=== PATIENT | female | born 1980 | race African-American/Black ===

== ENCOUNTER 2017-04-07 17:49 | Inpatient (IN) | payer OTHER ==
[~2017-04-07] VITALS: Ht 165.1 cm; Wt 79.1 kg
[2017-04-07 17:51] VITALS: BP 144/84; PULSE 114; RESP 21; TEMP 98.6; O2SAT 98
--- NOTE | 2017-04-07 18:12 | PD ---
Physical Exam Date Seen by Provider: Apr 07, 2017 Time Seen by Provider: 18:10 Narrative 36 yo female here for elevated BS. Has had "high" BS readings for a few days. Even using her insulin is not helping. History of Type 1 diabetes. Has been having abdominal pain. Feeling nauseous with some vomiting. Feels like she is having pancreatitis. Pain is 8/10. No blood in vomit. No chest pain. States compliance with insulin. Positive for polydipsia and polyuria. Vitals are stable. Awaiting bed placement. Data Data Last Documented VS Vital Signs Date Time Temp Pulse Resp B/P Pulse Ox O2 Delivery O2 Flow Rate FiO2 04/07/17 17:51 98.6 114 21 144/84 98 MDM Medical Record Reviewed: Yes Supervised Visit with DENZEL: Larry Gray Apr 07, 2017 18:12
[2017-04-07 18:40] VITALS: BP 155/82; PULSE 109; RESP 24; TEMP 98; O2SAT 100
--- NOTE | 2017-04-07 18:42 | PD ---
HPI Chief Complaint: Diabetic Time Seen by Provider: 18:25 Travel History International Travel<30 days: No Contact w/Intl Traveler<30days: No Traveled to known affect area: No History of Present Illness HPI 36-year-old female complains of headache, nausea vomiting, abdominal pain and urinary frequency. Patient has history diabetes on insulin. Patient states that she started having epigastric abdominal pain with radiation of back since yesterday. Patient has history of pancreatitis in the past. Patient states that headache is mild aching headache. Patient denies any visual change. Patient states that she has intermittent shortness of breath. Patient denies any coughing congestion. Patient denies any vaginal discharge or bleeding. Patient checked her blood sugar at home and was registered high. [facility] Past Medical History Diabetes: Yes Respiratory: Yes (asthma) Social History Tobacco Use: No Allergies-Medications (Allergen,Severity, Reaction): Coded Allergies: No Known Allergies (Unverified , 04/07/17) Reported Meds & Prescriptions Reported Meds & Active Scripts Active Reported Apidra Inj (Insulin Glulisine Inj) 1,000 Unit/10 Ml Vial 10 Units SQ ACHS SLIDING SCALE Novolin N Inj (Insulin Human NPH) 1,000 Unit/10 Ml Vial 15 Unit SQ DIRECTED Sliding Scale As Directed. Review of Systems General / Constitutional: No: Fever Eyes: No: Visual changes HENT: Positive: Headaches Cardiovascular: No: Chest Pain or Discomfort Respiratory: Positive: Shortness of Breath Gastrointestinal: Positive: Nausea, Vomiting, Abdominal Pain Genitourinary: Positive: Frequency, No: Dysuria Musculoskeletal: No: Pain Skin: No Rash Neurologic: No: Weakness Psychiatric: No: Depression Endocrine: No: Polydipsia Hematologic/Lymphatic: No: Easy Bruising Physical Exam Narrative GENERAL: Well-nourished, well-developed patient. SKIN: Focused skin assessment warm/dry. HEAD: Normocephalic. EYES: No scleral icterus. No injection or drainage. NECK: Supple, trachea midline. No JVD or lymphadenopathy. CARDIOVASCULAR: Regular rate and rhythm without murmurs, gallops, or rubs. RESPIRATORY: Breath sounds equal bilaterally. No accessory muscle use. GASTROINTESTINAL: Abdomen soft, nondistended. Patient has moderate tenderness on palpation epigastric area. No rebound tenderness. No mass. MUSCULOSKELETAL: No cyanosis, or edema. BACK: Nontender without obvious deformity. No CVA tenderness. Neurologic exam normal. Data Data Last Documented VS Vital Signs Date Time Temp Pulse Resp B/P Pulse Ox O2 Delivery O2 Flow Rate FiO2 04/07/17 18:40 98.0 109 24 155/82 100 Room Air Orders Urinalysis - C+S If Indicated (04/07/17 18:13) Complete Blood Count With Diff (04/07/17 18:32) Comprehensive Metabolic Panel (04/07/17 18:32) Lipase (04/07/17 18:32) Beta Hydroxybutyrate (Acetone) (04/07/17 18:32) Iv Access Insert/Monitor (04/07/17 18:32) Ecg Monitoring (04/07/17 18:32) Oximetry (04/07/17 18:32) Arterial Blood Gas (Abg) (04/07/17 ) Sodium Chlor 0.9% 1000 Ml Inj (Ns 1000 M (04/07/17 18:45) Labs Laboratory Tests Test 04/07/17 04/07/17 04/07/17 18:23 18:42 18:55 Urine Color COLORLESS Urine Turbidity CLEAR Urine pH 5.0 Urine Specific [place] 1.026 Urine Protein NEG mg/dL Urine Glucose (UA) 1000 mg/dL Urine Ketones 80 mg/dL Urine Occult Blood NEG Urine Nitrite NEG Urine Bilirubin NEG Urine Urobilinogen LESS THAN 2.0 MG/DL Urine Leukocyte Esterase NEG Urine RBC LESS THAN 1 /hpf Urine WBC LESS THAN 1 /hpf Urine Squamous Epithelial <1 /hpf Cells Microscopic Urinalysis Comment CULT NOT INDICATED Blood Gas Puncture Site RT BRACHIAL Blood Gas Patient Temperature 98.6 Blood Gas HCO3 13 mmol/L Blood Gas Base Excess -11.7 mmol/L Blood Gas Oxygen Saturation 96 % Arterial Blood pH 7.31 Arterial Blood Partial 27 mmHg Pressure CO2 Arterial Blood Partial 103 mmHG Pressure O2 Arterial Blood Oxygen Content 16.3 Vol % Arterial Blood 1.3 % Carboxyhemoglobin Arterial Blood Methemoglobin 0.6 % Blood Gas Hemoglobin 12.0 G/DL Oxygen Delivery Device ROOM AIR Blood Gas Inspired Oxygen 21 % White Blood Count 9.2 TH/MM3 Red Blood Count 4.13 MIL/MM3 Hemoglobin 12.1 GM/DL Hematocrit 38.8 % Mean Corpuscular Volume 93.9 FL Mean Corpuscular Hemoglobin 29.4 PG Mean Corpuscular Hemoglobin 31.3 % Concent Red Cell Distribution Width 14.8 % Platelet Count 287 TH/MM3 Mean Platelet Volume 10.3 FL Neutrophils (%) (Auto) 91.0 % Lymphocytes (%) (Auto) 6.7 % Monocytes (%) (Auto) 2.0 % Eosinophils (%) (Auto) 0.1 % Basophils (%) (Auto) 0.2 % Neutrophils # (Auto) 8.4 TH/MM3 Lymphocytes # (Auto) 0.6 TH/MM3 Monocytes # (Auto) 0.2 TH/MM3 Eosinophils # (Auto) 0.0 TH/MM3 Basophils # (Auto) 0.0 TH/MM3 CBC Comment DIFF FINAL Differential Comment Sodium Level 129 MEQ/L Potassium Level 4.8 MEQ/L Chloride Level 97 MEQ/L Carbon Dioxide Level 15.7 MEQ/L Anion Gap 16 MEQ/L Blood Urea Nitrogen 17 MG/DL Creatinine 1.50 MG/DL Estimat Glomerular Filtration 40 ML/MIN Rate Random Glucose 613 MG/DL Calcium Level 8.7 MG/DL Total Bilirubin 0.6 MG/DL Aspartate Amino Transf 42 U/L (AST/SGOT) Alanine Aminotransferase 21 U/L (ALT/SGPT) Alkaline Phosphatase 119 U/L Total Protein 8.5 GM/DL Albumin 3.5 GM/DL Lipase 71 U/L B-Hydroxybutyrate 2.44 MMOL/L MDM Medical Decision Making Medical Screen Exam Complete: Yes Emergency Medical Condition: Yes Differential Diagnosis Differential diagnosis including DKA, pancreatitis, a enteritis, dehydration, hyperglycemia. Narrative Course 36-year-old female with headache, shortness of breath, abdominal pain, nausea vomiting. History of pancreatitis. History of diabetes. Blood sugar reading high at home. Normal saline solution 1 L IV bolus. Ismael Ross MD Apr 07, 2017 18:42
[2017-04-07] MEDS ORDERED: SODIUM CHLOR 0.9% 1000 ML INJ 1,000 ML IV ONE ×2 (18:45→20:15)
[2017-04-07 18:47] LABS: BLOOD, URINE NEG (NEG); GLUCOSE,URINE 1000 mg/dL (NEG); KETONE, URINE 80 mg/dL (NEG); NITRITE,URINE NEG (NEG); SQUAMOUS EPITHELIAL CELL URINE <1 /hpf (0-5); URINE COLOR COLORLESS (YELLW/STRAW)
[2017-04-07] MEDS ORDERED: NOVONP2 SQ (18:47)
[2017-04-07] MEDS ORDERED: APIDINJ SQ (18:47)
[2017-04-07 18:49] LABS: COMMENT (UR) CULT NOT INDICATED; CULTURE IF INDICATED CULT NOT INDICATED
[2017-04-07 18:52] LABS: BLOOD GAS BASE EXCESS -11.7 mmol/L (-2-2); BLOOD GAS CARBOXYHEMOGLOBIN 1.3 % (0-4); BLOOD GAS HCO3 13 mmol/L (22-26); BLOOD GAS METHEMOGLOBIN 0.6 % (0-2); BLOOD GAS O2 HGB SATURATION 96 % (90-100); BLOOD GAS OXYGEN CONTENT 16.3 Vol % (12.0-20.0); BLOOD GAS PCO2 27 mmHg (38-42); BLOOD GAS PO2 103 mmHG (61-120); TEMP CORR TO 98.6
[2017-04-07 18:53] LABS: CRITICAL VALUE YES; DRAW SITE RT BRACHIAL; FIO2 21 %; NUMBER OF ARTERIAL PUNCTURES 1; OXYGEN DEVICE ROOM AIR; STAT YES
[2017-04-07 19:10] LABS: AUTOMATED NEUTROPHIL # 8.4 TH/MM3 (1.8-7.7); BASOPHIL % 0.2 % (0.0-2.0); EOSINOPHIL % 0.1 % (0.0-4.0); HEMATOCRIT 38.8 % (35.0-46.0); HEMO FLAGS DIFF FINAL; LYMPH % 6.7 % (9.0-44.0); LYMPHOCYTE # 0.6 TH/MM3 (1.0-4.8); MEAN CELL VOLUME 93.9 FL (80.0-100.0); MEAN CORPUSCULAR HEMOGLOBIN 29.4 PG (27.0-34.0); MEAN CORPUSCULAR HGB CONC 31.3 % (32.0-36.0); PLATELET COUNT 287 TH/MM3 (150-450); RED BLOOD COUNT 4.13 MIL/MM3 (4.00-5.30); RED CELL DISTRIBUTION WIDTH 14.8 % (11.6-17.2); WHITE BLOOD COUNT 9.2 TH/MM3 (4.0-11.0)
--- NOTE | 2017-04-07 19:10 | PD ---
Physical Exam Narrative General: The patient is a well-developed well-nourished female in no acute distress. Head and Neck exam: Head is normocephalic atraumatic. Eyes: EOMI, pupils are equal round and reactive to light. Nose: Midline septum with pink mucous membranes Mouth: Dentition unremarkable. Moist mucus membranes. Posterior oropharynx is not erythematous. No tonsillar hypertrophy. Uvula midline. Airway patent. Neck: No palpable lymphadenopathy. No nuchal rigidity. No thyromegaly. Cardiovascular: Sinus tachycardia in the 1 teens without murmurs, gallops, or rubs. No pulse deficit to the extremities and simultaneous auscultation and palpation of her radial artery. Lungs: Clear to auscultation bilaterally. No wheezes, rhonchi, or rales. Abdomen: Soft, with tenderness on palpation of the midepigastric area and left upper quadrant of the abdomen, no other tenderness on palpation of the other quadrants. No guarding, rebound, or rigidity. Normal bowel sounds are audible. No tenderness on palpation of McBurney's point. Negative Inglis sign. Extremities: No clubbing, cyanosis, or edema. 2+ pulses in all 4 extremities. No calf tenderness on palpation. Back: No spinous process tenderness to palpation. Left-sided CVA tenderness elicited on palpation. Neurologic Exam: Grossly nonfocal. Skin Exam: No rash noted. Intact skin that is warm and dry. Data Data Last Documented VS Vital Signs Date Time Temp Pulse Resp B/P Pulse Ox O2 Delivery O2 Flow Rate FiO2 04/07/17 18:40 98.0 109 24 155/82 100 Room Air Orders Urinalysis - C+S If Indicated (04/07/17 18:13) Complete Blood Count With Diff (04/07/17 18:32) Comprehensive Metabolic Panel (04/07/17 18:32) Lipase (04/07/17 18:32) Beta Hydroxybutyrate (Acetone) (04/07/17 18:32) Iv Access Insert/Monitor (04/07/17 18:32) Ecg Monitoring (04/07/17 18:32) Oximetry (04/07/17 18:32) Arterial Blood Gas (Abg) (04/07/17 ) Sodium Chlor 0.9% 1000 Ml Inj (Ns 1000 M (04/07/17 18:45) Marketing Services Manager / Telemetry [id number] (04/07/17 20:03) ^ Insert Iv (04/07/17 20:03) Diet Npo (04/08/17 Breakfast) Sodium Chlor 0.9% 1000 Ml Inj (Ns 1000 M (04/07/17 20:03) Dext 5%-Nacl 0.9% 1000 Ml Inj (D5w-Ns 10 (04/07/17 20:03) Insulin Human Regular Inj (Novolin R Inj (04/07/17 20:15) Insulin Regular (Iv Infusion) (Novolin R (04/07/17 20:15) Potassium Chlor 40 Meq Premix (Kcl 40 Me (04/07/17 20:15) Potassium Chlor 40 Meq Premix (Kcl 40 Me (04/07/17 20:15) Potassium Chlor 20 Meq Premix (Kcl 20 Me (04/07/17 20:15) Potassium Chlor 20 Meq Premix (Kcl 20 Me (04/07/17 20:15) Potassium Chlor 20 Meq Premix (Kcl 20 Me (04/07/17 20:15) Potassium Chlor 20 Meq Premix (Kcl 20 Me (04/07/17 20:15) Potassium Chlor 20 Meq Premix (Kcl 20 Me (04/07/17 20:15) Potassium Chlor 20 Meq Premix (Kcl 20 Me (04/07/17 20:15) Sodium Bicarbonate 8.4% Inj (Sodium Bica (04/07/17 20:15) Sodium Bicarbonate 8.4% Inj (Sodium Bica (04/07/17 20:15) Sodium Phosphate Inj (Sodium Phosphate I (04/07/17 20:15) Hemoglobin (Hgb) A1c (04/07/17 20:03) Basic Metabolic Panel (Bmp) (04/08/17 01:03) Basic Metabolic Panel (Bmp) (04/08/17 07:03) Basic Metabolic Panel (Bmp) (04/08/17 13:03) Basic Metabolic Panel (Bmp) (04/08/17 19:03) Magnesium (Mg) (04/08/17 01:03) Magnesium (Mg) (04/08/17 07:03) Magnesium (Mg) (04/08/17 13:03) Magnesium (Mg) (04/08/17 19:03) Phosphorus (Po4) (04/08/17 01:03) Phosphorus (Po4) (04/08/17 07:03) Phosphorus (Po4) (04/08/17 13:03) Phosphorus (Po4) (04/08/17 19:03) Beta Hydroxybutyrate (Acetone) (04/08/17 07:03) Beta Hydroxybutyrate (Acetone) (04/08/17 19:03) Chest, Single Ap (04/07/17 ) Sodium Chlor 0.9% 1000 Ml Inj (Ns 1000 M (04/07/17 20:15) Ed Urine Pregnancytest Poc (04/07/17 20:03) Ondansetron Inj (Zofran Inj) (04/07/17 20:30) Admit Order (Ed Use Only) (04/07/17 20:24) Ondansetron Inj (Zofran Inj) (04/07/17 20:30) Labs Laboratory Tests Test 04/07/17 04/07/17 04/07/17 18:23 18:42 18:55 Urine Color COLORLESS Urine Turbidity CLEAR Urine pH 5.0 Urine Specific [place] 1.026 Urine Protein NEG mg/dL Urine Glucose (UA) 1000 mg/dL Urine Ketones 80 mg/dL Urine Occult Blood NEG Urine Nitrite NEG Urine Bilirubin NEG Urine Urobilinogen LESS THAN 2.0 MG/DL Urine Leukocyte Esterase NEG Urine RBC LESS THAN 1 /hpf Urine WBC LESS THAN 1 /hpf Urine Squamous Epithelial <1 /hpf Cells Microscopic Urinalysis Comment CULT NOT INDICATED Blood Gas Puncture Site RT BRACHIAL Blood Gas Patient Temperature 98.6 Blood Gas HCO3 13 mmol/L Blood Gas Base Excess -11.7 mmol/L Blood Gas Oxygen Saturation 96 % Arterial Blood pH 7.31 Arterial Blood Partial 27 mmHg Pressure CO2 Arterial Blood Partial 103 mmHG Pressure O2 Arterial Blood Oxygen Content 16.3 Vol % Arterial Blood 1.3 % Carboxyhemoglobin Arterial Blood Methemoglobin 0.6 % Blood Gas Hemoglobin 12.0 G/DL Oxygen Delivery Device ROOM AIR Blood Gas Inspired Oxygen 21 % White Blood Count 9.2 TH/MM3 Red Blood Count 4.13 MIL/MM3 Hemoglobin 12.1 GM/DL Hematocrit 38.8 % Mean Corpuscular Volume 93.9 FL Mean Corpuscular Hemoglobin 29.4 PG Mean Corpuscular Hemoglobin 31.3 % Concent Red Cell Distribution Width 14.8 % Platelet Count 287 TH/MM3 Mean Platelet Volume 10.3 FL Neutrophils (%) (Auto) 91.0 % Lymphocytes (%) (Auto) 6.7 % Monocytes (%) (Auto) 2.0 % Eosinophils (%) (Auto) 0.1 % Basophils (%) (Auto) 0.2 % Neutrophils # (Auto) 8.4 TH/MM3 Lymphocytes # (Auto) 0.6 TH/MM3 Monocytes # (Auto) 0.2 TH/MM3 Eosinophils # (Auto) 0.0 TH/MM3 Basophils # (Auto) 0.0 TH/MM3 CBC Comment DIFF FINAL Differential Comment Sodium Level 129 MEQ/L Potassium Level 4.8 MEQ/L Chloride Level 97 MEQ/L Carbon Dioxide Level 15.7 MEQ/L Anion Gap 16 MEQ/L Blood Urea Nitrogen 17 MG/DL Creatinine 1.50 MG/DL Estimat Glomerular Filtration 40 ML/MIN Rate Random Glucose 613 MG/DL Calcium Level 8.7 MG/DL Total Bilirubin 0.6 MG/DL Aspartate Amino Transf 42 U/L (AST/SGOT) Alanine Aminotransferase 21 U/L (ALT/SGPT) Alkaline Phosphatase 119 U/L Total Protein 8.5 GM/DL Albumin 3.5 GM/DL Lipase 71 U/L B-Hydroxybutyrate 2.44 MMOL/L [facility] Medical Record Reviewed: Yes Supervised Visit with DENZEL: No Differential Diagnosis DKA, versus hyperglycemia with hyperosmolality Narrative Course During the course of the patients emergency department visit, the patients history, examination, and differential diagnosis were reviewed with the patient. The patient had IV access obtained and blood work sent for analysis. The patient's case was checked out to me by Dr. Ross. The patient presents with a critically high blood sugar and acidosis on ABG suspicious for DKA. The patient has a history of diabetes mellitus with midepigastric abdominal pain and nausea and vomiting. The patient was initially provided normal saline 1 L IV fluid bolus. The patients laboratory studies were reviewed and remarkable for a white count of 9.2, hemoglobin 12.1, platelets 287 with 91 neutrophils, lymphocytes 6.7. CMP is remarkable for sodium of 129, potassium 4.8, chloride 97, bicarbonate 15.7, anion gap 16, creatinine 1.50, glucose 613, AST 42, alkaline phosphatase 119, lipase 71. Beta hydroxybutyrate is 2.44, urinalysis shows 1000 glucose, 80 ketones, otherwise unremarkable. The patient will be started on a second liter of normal saline, insulin bolus of 7 units and then an insulin drip to follow. Radiology studies were reviewed and remarkable for a chest x-ray that shows no acute abnormality. A call was then placed out to the [facility] for admission. The patients results were discussed with the patient, including the plan of care. I explained that further testing and/ or monitoring is indicated based on the patients history, examination, and/ or laboratory findings. Therefore, I recommended admission for additional evaluation. The patient expressed understanding and was agreeable with this plan. The patient was admitted to the hospital in guarded condition and sent to a bed under the care of of the [facility] service Critical Care Narrative Aggregate critical care time was 34 minutes. Time to perform other separately billable procedures was not included in the critical care time. My time did not include minutes spent treating any other patients simultaneously or on activities that did not directly contribute to the patient's treatment. The services I provided to this patient were to treat and/or prevent clinically significant deterioration that could result in: Progression of acidosis from DKA, versus respiratory failure from fluid overload, versus metabolic encephalopathy I provided critical care services requiring my management, as noted below: Chart data review, documentation time, medication orders and management, vital sign assessments/reviewing monitor data, ordering and reviewing lab tests, ordering and interpreting/reviewing x-rays and diagnostic studies, care of the patient and discussion of the patient with the admitting physicians. Physician Communication Physician Communication The patient's case was discussed with Dr. Henderson who did agree to admit the patient for further evaluation and treatment at this time. Diagnosis Primary Impression: DKA, type 1 Qualified Code: E10.10 - Type 1 diabetes mellitus with ketoacidosis without coma Admitting Information Admitting Physician Requests: Joanne Schmitz MD Apr 07, 2017 19:10
[2017-04-07 19:36] LABS: ALKALINE PHOSPHATASE 119 U/L (45-117); ALT (GPT) 21 U/L (10-53); ANION GAP 16 MEQ/L (5-15); AST (GOT) 42 U/L (15-37); BETA-HYDROXYBUTYRATE 2.44 MMOL/L (0.00-0.39); BICARBONATE 15.7 MEQ/L (21.0-32.0); BLOOD UREA NITROGEN 17 MG/DL (7-18); CHLORIDE 97 MEQ/L (98-107); GLOMERULAR FILTRATION RATE 40 ML/MIN (>89); SODIUM (NA) 129 MEQ/L (136-145); TOTAL BILIRUBIN ADULT 0.6 MG/DL (0.2-1.0)
[2017-04-07 19:38] LABS: POTASSIUM 4.8 MEQ/L (3.5-5.1)
[2017-04-07] MEDS ORDERED: SODIUM CHLOR 0.9% 1000 ML INJ 1,000 ML IV SCH (20:03)
[2017-04-07] MEDS ORDERED: DEXT 5%-NACL 0.9% 1000 ML INJ 1,000 ML IV SCH (20:03)
[2017-04-07] MEDS ORDERED: INSULIN HUMAN REGULAR 1,000 UNITS/10 ML VIAL IV PUSH ONE (20:15)
[2017-04-07] MEDS ORDERED: SODIUM PHOSPHATE INJ 15 MMOL in SODIUM CHLORIDE 0.9% INJ 100 ML IV PRN (20:15)
[2017-04-07] MEDS ORDERED: INSULIN REGULAR (IV INFUSION) 100 UNITS in SODIUM CHLORIDE 0.9% INJ 99 ML IV SCH (20:15)
[2017-04-07] MEDS ORDERED: POTASSIUM CHLOR 40 MEQ PREMIX 100 ML IV PRN ×2 (20:15)
[2017-04-07] MEDS ORDERED: POTASSIUM CHLOR 20 MEQ PREMIX 100 ML IV PRN ×6 (20:15)
[2017-04-07] MEDS ORDERED: SODIUM BICARBONATE 8.4% SOLN 50 MEQ/50 ML VIAL IV PRN ×2 (20:15)
[2017-04-07] MEDS ORDERED: ONDANSETRON HCL 4 MG/2 ML VIAL IV ONE ×2 (20:30)
[2017-04-07] MEDS ORDERED: SODIUM CHLORIDE 0.9% FLUSH 10 ML FLUSH IV FLUSH PRN (20:45)
[2017-04-07] MEDS ORDERED: NALOXONE HCL 0.4 MG/ML AMP IV PRN (20:45)
--- NOTE | 2017-04-07 21:00 | RADRPT ---
EXAM DATE/TIME: 04/07/2017 20:23 [place] COMPARISON: No previous studies available for comparison. INDICATIONS : Short of breath and vomiting for 2 days. MEDICAL HISTORY : Asthma. Diabetic. SURGICAL HISTORY : None. ENCOUNTER: Initial ACUITY: 2 days PAIN SCORE: 3/10 LOCATION: Bilateral chest FINDINGS: A single view of the chest demonstrates the lungs to be symmetrically aerated without evidence of mas s, infiltrate or effusion. The cardiomediastinal contours are unremarkable. Osseous structures are intact. CONCLUSION: No acute disease. Spencer Brody MD on April 07, 2017 at 20:57 Board Certified Radiologist. This report was verified electronically.
[2017-04-07 22:58] VITALS: BP 135/79; PULSE 98; RESP 18; TEMP 98.1; O2SAT 100; O2SAT 98
[2017-04-07 23:32] LABS: BICARBONATE 20.4 MEQ/L (21.0-32.0)
[2017-04-08] MEDS: SODIUM CHLORIDE 0.9% FLUSH 10 ML FLUSH IV FLUSH SCH ×3 (01:10→20:42)
[2017-04-08] MEDS: SODIUM CHLOR 0.9% 1000 ML INJ 1,000 ML IV SCH ×3 (01:11→16:00)
[2017-04-08 02:09] LABS: BICARBONATE 24.5 MEQ/L (21.0-32.0); POTASSIUM 3.8 MEQ/L (3.5-5.1)
[2017-04-08 02:35] VITALS: BP 139/77; PULSE 86; RESP 16; TEMP 96.8; O2SAT 100
[2017-04-08 04:00] VITALS: BP 132/74; PULSE 81; RESP 16; TEMP 96.7; O2SAT 100
[2017-04-08] MEDS: ACETAMINOPHEN/HYDROcodone 325 MG/5 MG TAB PO PRN ×2 (04:08→11:39)
[2017-04-08] MEDS ORDERED: PROCHLORPERAZINE INJ 10 MG/2 ML VIAL IV PUSH PRN (05:15)
[2017-04-08 07:13] VITALS: BP 132/78; PULSE 77; RESP 16; TEMP 96.3; O2SAT 96
--- NOTE | 2017-04-08 08:11 | HHI.HP ---
Headache, Nausea, vomit HPI Service [facility] Primary Care Physician No Primary Care Physician Admission Diagnosis DKA Diagnoses: Chief Complaint: Headache, Nausea and vomit, Hyperglycemia Travel History International Travel<30 Days: No Contact w/Intl Traveler <30 Da: No Traveled to Known Affected Are: No History of Present Illness This is a pleasant 36 y/o Female who came to ER with complaint of headache, nausea vomiting, abdominal pain and urinary frequency. Patient has history diabetes Mellitus type I. Patient states that she started having epigastric abdominal pain with radiation of back since one day before coming to ER, Patient has history of pancreatitis in the past. Patient states that headache is mild aching headache. Patient denies any visual change. Patient states that she has intermittent shortness of breath. Patient denies any coughing congestion. Patient denies any vaginal discharge or bleeding. Patient checked her blood sugar at home and was registered high. was in DKA on admission, she is been seen in her bedroom in the presence of her Girlfriend authorized for her to be in the room Miss Kingsleya as per patient continue with Nausea, discussed with nurse Miss Mueller. she has DM I since she was 21 years of age. Review of Systems Gastrointestinal: COMPLAINS OF: Nausea Genitourinary: COMPLAINS OF: Urinary frequency Except as stated in HPI: all other systems reviewed are Neg Past Family Social History Past Medical History Diabetes Mellitus type I since she was 21 years of age. Past Surgical History Cataract surgery Reported Medications Reported Meds & Active Scripts Active Reported Apidra Inj (Insulin Glulisine Inj) 1,000 Unit/10 Ml Vial 10 Units SQ ACHS SLIDING SCALE Novolin N Inj (Insulin Human NPH) 1,000 Unit/10 Ml Vial 15 Unit SQ DIRECTED Sliding Scale As Directed. Allergies: Coded Allergies: No Known Allergies (Unverified , 04/07/17) Active Ordered Medications Current Medications Medications (Trade) Dose Ordered Sig/Crow Route Start Time Stop Time Status Last Admin (NS Flush) 2 ml UNSCH PRN IV FLUSH 04/07/17 20:45 (NS Flush) 2 ml BID IV FLUSH 04/07/17 21:00 04/08/17 01:10 (Narcan Inj) 0.4 mg UNSCH PRN IV 04/07/17 20:45 Acetaminophen/ Hydrocodone Bitart 1 tab 1 tab Q6H PRN PO 04/08/17 00:00 04/08/17 04:08 (NS 1000 ml Inj) 1,000 ml @ 125 mls/hr Q8H IV 04/08/17 00:00 04/08/17 04:09 (Compazine Inj) 5 mg Q6H PRN IV PUSH 04/08/17 05:15 04/08/17 05:29 (NovoLIN R SUPPLEMENTAL SCALE) 1 Q4HR SQ 04/08/17 08:15 (D50w (Vial) Inj) 25 ml UNSCH PRN IV PUSH 04/08/17 08:15 (Glucagon Inj) 1 mg UNSCH PRN OTHER 04/08/17 08:15 (Protonix Inj) 40 mg DAILY IV PUSH 04/08/17 08:15 (Carafate Liq) 1 gm ACHS PO 04/08/17 11:00 Family History asked and denied. Social History Lives alone, works as a social media senior associate for [employer] denies any toxic habits. Physical Exam Vital Signs Vital Signs Date Time Temp Pulse Resp B/P Pulse Ox O2 Delivery O2 Flow Rate FiO2 04/08/17 04:00 96.7 81 16 132/74 100 04/08/17 02:35 96.8 86 16 139/77 100 04/07/17 22:58 98.1 98 18 135/79 98 04/07/17 22:58 100 Room Air 04/07/17 18:40 98.0 109 24 155/82 100 Room Air 04/07/17 17:51 98.6 114 21 144/84 98 Physical Exam GENERAL: This is a well-nourished, well-developed patient, in no apparent distress. SKIN: No rashes, ecchymoses or lesions. Cool and dry. HEAD: Atraumatic. Normocephalic. No temporal or scalp tenderness. EYES: Pupils equal round and reactive. Extraocular motions intact. No scleral icterus. No injection or drainage. ENT: Nose without bleeding, purulent drainage or septal hematoma. Throat without erythema, tonsillar hypertrophy or exudate. Uvula midline. Airway patent. NECK: Trachea midline. No JVD or lymphadenopathy. Supple, nontender, no meningeal signs. CARDIOVASCULAR: Regular rate and rhythm without murmurs, gallops, or rubs. RESPIRATORY: Clear to auscultation. Breath sounds equal bilaterally. No wheezes , rales, or rhonchi. GASTROINTESTINAL: Abdomen soft, non-tender, nondistended. No hepato-splenomegaly , or palpable masses. No guarding. MUSCULOSKELETAL: Extremities without clubbing, cyanosis, or edema. No joint tenderness, effusion, or edema noted. No calf tenderness. Negative Homans sign bilaterally. NEUROLOGICAL: Awake and alert. Cranial nerves II through XII intact. Motor and sensory grossly within normal limits. Five out of 5 muscle strength in all muscle groups. Normal speech. Laboratory Laboratory Tests Test 04/07/17 04/07/17 04/07/17 04/07/17 18:23 18:42 18:55 22:48 Urine Color COLORLESS Urine Turbidity CLEAR Urine pH 5.0 Urine Specific [place] 1.026 Urine Protein NEG Urine Glucose (UA) 1000 Urine Ketones 80 Urine Occult Blood NEG Urine Nitrite NEG Urine Bilirubin NEG Urine Urobilinogen LESS THAN 2.0 Urine Leukocyte Esterase NEG Urine RBC LESS THAN 1 Urine WBC LESS THAN 1 Urine Squamous Epithelial <1 Cells Microscopic Urinalysis Comment CULT NOT INDICATED Blood Gas Puncture Site RT BRACHIAL Blood Gas Patient Temperature 98.6 Blood Gas HCO3 13 Blood Gas Base Excess -11.7 Blood Gas Oxygen Saturation 96 Arterial Blood pH 7.31 Arterial Blood Partial 27 Pressure CO2 Arterial Blood Partial 103 Pressure O2 Arterial Blood Oxygen Content 16.3 Arterial Blood 1.3 Carboxyhemoglobin Arterial Blood Methemoglobin 0.6 Blood Gas Hemoglobin 12.0 Oxygen Delivery Device ROOM AIR Blood Gas Inspired Oxygen 21 White Blood Count 9.2 Red Blood Count 4.13 Hemoglobin 12.1 Hematocrit 38.8 Mean Corpuscular Volume 93.9 Mean Corpuscular Hemoglobin 29.4 Mean Corpuscular Hemoglobin 31.3 Concent Red Cell Distribution Width 14.8 Platelet Count 287 Mean Platelet Volume 10.3 Neutrophils (%) (Auto) 91.0 Lymphocytes (%) (Auto) 6.7 Monocytes (%) (Auto) 2.0 Eosinophils (%) (Auto) 0.1 Basophils (%) (Auto) 0.2 Neutrophils # (Auto) 8.4 Lymphocytes # (Auto) 0.6 Monocytes # (Auto) 0.2 Eosinophils # (Auto) 0.0 Basophils # (Auto) 0.0 CBC Comment DIFF FINAL Differential Comment Sodium Level 129 138 Potassium Level 4.8 4.0 Chloride Level 97 108 Carbon Dioxide Level 15.7 20.4 Anion Gap 16 10 Blood Urea Nitrogen 17 13 Creatinine 1.50 0.81 Estimat Glomerular Filtration 40 98 Rate Random Glucose 613 229 Calcium Level 8.7 7.8 Total Bilirubin 0.6 Aspartate Amino Transf 42 (AST/SGOT) Alanine Aminotransferase 21 (ALT/SGPT) Alkaline Phosphatase 119 Total Protein 8.5 Albumin 3.5 Lipase 71 B-Hydroxybutyrate 2.44 Test 04/08/17 01:31 Sodium Level 142 Potassium Level 3.8 Chloride Level 110 Carbon Dioxide Level 24.5 Anion Gap 8 Blood Urea Nitrogen 10 Creatinine 0.68 Estimat Glomerular Filtration 120 Rate Random Glucose 142 Calcium Level 8.0 Phosphorus Level 2.0 Magnesium Level 2.0 Result Diagram: 04/07/17 1855 04/08/17 0131 Imaging Last Impressions Chest X-Ray 04/07/17 0000 Signed Impressions: Service Date/Time: Friday, April 07, 2017 20:23 - CONCLUSION: No acute disease. Spencer Brody MD Assessment and Plan Assessment and Plan 1. DKA on admission improved, continue IV fluids and continue diet diabetic diet and adjusted Diabetes medicines 2. DM I since she was 21 years of age asking for long lasting insulin at discharge DVT prophylaxis asked to increase activity added Lovenox. continue Hospitalized for 23 hour observation and discharge home. photography manager for discharge Code Status Full code. Discussed Condition With Patient, nurse and her Girlfriend in the room Sean Hallman MD Apr 08, 2017 08:11
[2017-04-08] MEDS ORDERED: INSULIN DETEMIR 100 UNITS/ML VIAL SQ ONE (08:15)
[2017-04-08] MEDS ORDERED: GLUCAGON 1 MG/ML VIAL OTHER PRN (08:15)
[2017-04-08] MEDS ORDERED: DEXTROSE 50% IN WATER 50 ML VIAL(D50) IV PUSH PRN (08:15)
[2017-04-08] MEDS: PANTOPRAZOLE SODIUM 40 MG VIAL IV PUSH SCH ×2 (09:00→10:42)
[2017-04-08 09:17] LABS: BICARBONATE 20.3 MEQ/L (21.0-32.0); POTASSIUM 3.8 MEQ/L (3.5-5.1)
[2017-04-08 09:21] LABS: BETA-HYDROXYBUTYRATE 2.39 MMOL/L (0.00-0.39)
[2017-04-08] MEDS: INSULIN NovoLIN REGULAR SUPPLEMENTAL SCALE SQ SCH ×4 (10:48→20:00)
[2017-04-08] MEDS ORDERED: INSULIN NovoLIN REGULAR SUPPLEMENTAL SCALE SQ SCH (11:00)
[2017-04-08 11:22] VITALS: BP 130/67; PULSE 90; RESP 16; TEMP 97.4; O2SAT 99
[2017-04-08] MEDS: SUCRALFATE 1 GM/10 ML CUP PO SCH ×3 (12:28→20:40)
[2017-04-08 15:00] VITALS: BP 129/72; PULSE 96; RESP 16; TEMP 97.6; O2SAT 98
[2017-04-08 17:29] LABS: BICARBONATE 23.3 MEQ/L (21.0-32.0); MAGNESIUM 1.8 MG/DL (1.5-2.5); POTASSIUM 3.6 MEQ/L (3.5-5.1)
[2017-04-08] MEDS: NYSTAT/DIPHENHY/LIDO MOUTHWASH (Adult) 120ML SWISH-SWAL SCH ×2 (17:46→20:42)
[2017-04-08 20:20] VITALS: BP 146/77; PULSE 80; RESP 16; TEMP 97.3; O2SAT 100
[2017-04-08 21:22] LABS: HEMOGLOBIN A1a 1.1 %; HEMOGLOBIN A1b 2.7 %; HEMOGLOBIN Ao 76.4 %; HEMOGLOBIN LA1C 5.2 %
[2017-04-08 22:13] LABS: BETA-HYDROXYBUTYRATE 0.58 MMOL/L (0.00-0.39); BICARBONATE 22.6 MEQ/L (21.0-32.0); MAGNESIUM 1.9 MG/DL (1.5-2.5); POTASSIUM 3.6 MEQ/L (3.5-5.1)
[2017-04-09 00:50] VITALS: BP 116/63; PULSE 84; RESP 16; TEMP 96.8; O2SAT 95
[2017-04-09] MEDS: SODIUM CHLOR 0.9% 1000 ML INJ 1,000 ML IV SCH ×2 (04:00→09:13)
[2017-04-09] MEDS: INSULIN NovoLIN REGULAR SUPPLEMENTAL SCALE SQ SCH ×3 (04:00→09:27)
[2017-04-09 04:30] VITALS: BP 129/78; PULSE 79; RESP 16; TEMP 97; O2SAT 96
[2017-04-09] MEDS: SUCRALFATE 1 GM/10 ML CUP PO SCH ×2 (07:00→10:18)
[2017-04-09 08:00] VITALS: BP 142/75; PULSE 78; RESP 20; TEMP 97.4; O2SAT 95
[2017-04-09 08:16] LABS: BICARBONATE 23.1 MEQ/L (21.0-32.0); POTASSIUM 3.2 MEQ/L (3.5-5.1)
[2017-04-09 08:56] VITALS: PULSE 70
[2017-04-09] MEDS: PANTOPRAZOLE SODIUM 40 MG VIAL IV PUSH SCH (09:14)
[2017-04-09] MEDS: SODIUM CHLORIDE 0.9% FLUSH 10 ML FLUSH IV FLUSH SCH (09:14)
[2017-04-09] MEDS: NYSTAT/DIPHENHY/LIDO MOUTHWASH (Adult) 120ML SWISH-SWAL SCH ×2 (09:23→12:42)
--- NOTE | 2017-04-09 09:40 | HHI.PR ---
Subjective Remarks resting comfortably with no distress. no pain, nausea or vomiting. accu-check this morning; 215. Objective Vitals Vital Signs Date Time Temp Pulse Resp B/P Pulse Ox O2 Delivery O2 Flow Rate FiO2 04/09/17 08:00 97.4 78 20 142/75 95 04/09/17 04:30 97.0 79 16 129/78 96 04/09/17 00:50 96.8 84 16 116/63 95 04/08/17 20:20 97.3 80 16 146/77 100 04/08/17 15:00 97.6 96 16 129/72 98 04/08/17 11:22 97.4 90 16 130/67 99 I/O 04/08/17 04/08/17 04/08/17 04/09/17 04/09/17 04/09/17 07:00 15:00 23:00 07:00 15:00 23:00 Intake Total 240 ml 960 ml 480 ml 240 ml Balance 240 ml 960 ml 480 ml 240 ml Intake Oral 240 ml 960 ml 480 ml 240 ml # Voids 2 1 2 2 # Bowel Movements 0 0 0 0 Result Diagram: 04/07/17 1855 04/09/17 0635 Imaging Last Impressions Chest X-Ray 04/07/17 0000 Signed Impressions: Service Date/Time: Friday, April 07, 2017 20:23 - CONCLUSION: No acute disease. Spencer Brody MD Objective Remarks GENERAL: This is a well-nourished, well-developed patient, in no apparent distress. CARDIOVASCULAR: Regular rate and regular rhythm without murmurs, gallops, or rubs. RESPIRATORY: Clear to auscultation. Breath sounds equal bilaterally. No wheezes , rales, or rhonchi. GASTROINTESTINAL: Abdomen soft, non-tender, nondistended. Normal, active bowel sounds MUSCULOSKELETAL: Extremities without clubbing, cyanosis, or edema. NEURO: Alert & Oriented x4 to person, place, time, situation. Moves all ext x4 Procedures none Medications and IVs Current Medications Sodium Chloride 1,000 ml @ 999 mls/hr BOLUS ONCE IV Last administered on 04/07t 19:02; Start 04/07/17 at 18:45; Stop 04/07/17 at 19:45; Status DC Sodium Chloride 1,000 ml @ 250 mls/hr Q4H IV Last administered on 04/07/17 22 :57; Start 04/07/17 at 20:03; Stop 04/08/17 at 00:00; Status DC Dextrose/Sodium Chloride (D5W-NS 1000 ml Inj) 1,000 ml @ 200 mls/hr Q5H IV ; Start 04/07/17 at 20:03; Stop 04/08/17 at 00:01; Status DC Insulin Human Regular 7 units 7 units BOLUS ONCE IV PUSH Last administered on 04/07/17 20:49; Start 04/07/17 at 20:15; Stop 04/07/17 at 20:16; Status DC Insulin Human Regular 100 units/ Sodium Chloride 100 ml @ 0 mls/hr TITRATE IV ; Start 04/07/17 at 20:15; Stop 04/08/17 at 00:02; Status DC Potassium Chloride 100 ml @ 100 mls/hr Q1H PRN IV SEE LABEL COMMENTS; Start at 20:15; Stop 04/08/17 at 00:03; Status DC Potassium Chloride 100 ml @ 50 mls/hr Q2H PRN IV SEE LABEL COMMENTS; Start at 20:15; Stop 04/08/17 at 00:04; Status DC Potassium Chloride 100 ml @ 100 mls/hr Q1H PRN IV SEE LABEL COMMENTS; Start at 20:15; Stop 04/08/17 at 00:05; Status DC Potassium Chloride 100 ml @ 100 mls/hr Q1H PRN IV SEE LABEL COMMENTS; Start at 20:15; Stop 04/08/17 at 00:06; Status DC Potassium Chloride 100 ml @ 50 mls/hr Q2H PRN IV SEE LABEL COMMENTS; Start at 20:15; Stop 04/08/17 at 00:07; Status DC Potassium Chloride 100 ml @ 50 mls/hr Q2H PRN IV SEE LABEL COMMENTS; Start at 20:15; Stop 04/08/17 at 00:08; Status DC Potassium Chloride 100 ml @ 50 mls/hr Q2H PRN IV SEE LABEL COMMENTS; Start at 20:15; Stop 04/08/17 at 00:09; Status DC Potassium Chloride (KCl 20 Meq Premix Inj) 100 ml @ 50 mls/hr Q2H PRN IV SEE LABEL COMMENTS; Start 04/07/17 at 20:15; Stop 04/08/17 at 00:12; Status DC Sodium Bicarbonate (Sodium Bicarbonate 8.4% Inj) 100 meq UNSCH PRN IV SEE LABEL COMMENTS; Start 04/07/17 at 20:15; Stop 04/08/17 at 00:14; Status DC Sodium Bicarbonate 50 meq 50 meq UNSCH PRN IV SEE LABEL COMMENTS; Start at 20:15; Stop 04/08/17 at 00:14; Status DC Sodium Phosphate 15 mmol/Sodium Chloride 105 ml @ 25 mls/hr UNSCH PRN IV SEE LABEL COMMENTS; Start 04/07/17 at 20:15; Stop 04/08/17 at 00:14; Status DC Sodium Chloride (NS 1000 ml Inj) 1,000 ml @ 1,000 mls/hr Q1H ONCE IV Last administered on 04/07/17 20:48; Start 04/07/17 at 20:15; Stop 04/07/17 at 21:14 ; Status DC Ondansetron HCl (Zofran Inj) 4 mg ONCE ONCE IV Last administered on 04/07/17 21:07; Start 04/07/17 at 20:30; Stop 04/07/17 at 20:31; Status DC Ondansetron HCl (Zofran Inj) 4 mg ONCE ONCE IV Last administered on 04/08/17 01:10; Start 04/07/17 at 20:30; Stop 04/07/17 at 20:31; Status DC Sodium Chloride (NS Flush) 2 ml UNSCH PRN IV FLUSH FLUSH AFTER USING IV ACCESS ; Start 04/07/17 at 20:45 Sodium Chloride (NS Flush) 2 ml BID IV FLUSH Last administered on 04/08/17 09: 00; Start 04/07/17 at 21:00 Naloxone HCl (Narcan Inj) 0.4 mg UNSCH PRN IV SEE LABEL COMMENTS; Start at 20:45 Acetaminophen/ Hydrocodone Bitart 1 tab 1 tab Q6H PRN PO pain >5 Last administered on 04/08/17 11:39; Start 04/08/17 at 00:00 Sodium Chloride (NS 1000 ml Inj) 1,000 ml @ 125 mls/hr Q8H IV Last administered on 04/09/17 04:00; Start 04/08/17 at 00:00 Prochlorperazine Edisylate (Compazine Inj) 5 mg Q6H PRN IV PUSH nausea Last administered on 04/08/17 05:29; Start 04/08/17 at 05:15 Insulin Human Regular (NovoLIN R SUPPLEMENTAL SCALE) 1 ACHS SLIDING SCALE SQ ; Start 04/08/17 at 11:00; Stop 04/08/17 at 11:00; Status DC Insulin Human Regular (NovoLIN R SUPPLEMENTAL SCALE) 1 Q4HR SQ Last administered on 04/08/17 16:39; Start 04/08/17 at 08:15 Dextrose (D50w (Vial) Inj) 25 ml UNSCH PRN IV PUSH HYPOGLYCEMIA - SEE COMMENTS ; Start 04/08/17 at 08:15 Glucagon (Glucagon Inj) 1 mg UNSCH PRN OTHER HYPOGLYCEMIA-SEE COMMENTS; Start 04/08/17 at 08:15 Insulin Detemir (Levemir Inj) 10 units ONCE ONCE SQ Last administered on 10:46; Start 04/08/17 at 08:15; Stop 04/08/17 at 08:17; Status DC Pantoprazole Sodium (Protonix Inj) 40 mg DAILY IV PUSH Last administered on 09:00; Start 04/08/17 at 08:15 Sucralfate (Carafate Liq) 1 gm ACHS PO Last administered on 04/09/17 07:00; Start 04/08/17 at 11:00 Multi-Ingredient Mouthwash/Gargle (Magic Mouthwash Adult Liq) 5 ml QID SWISH- SWAL Last administered on 04/08/17 20:42; Start 04/08/17 at 18:00 A/P Assessment and Plan A/P - DKA- has resolved. will start on levemir along with accu-check with SSI. -hypokalemia; will replace. -hypophosphatemia; will monitor. Discharge Planning possible dc home this evening if stable. f/u; pcp. see med list. d/w the patient. Josy Coyle MD Apr 09, 2017 09:40
[2017-04-09] MEDS ORDERED: LEVEMIR SQ (09:42)
[2017-04-09] MEDS ORDERED: NOVOLOGP2 SQ (09:42)
--- NOTE | 2017-04-09 09:43 | HHI.DCPOC ---
Discharge Care Plan Diagnosis: (1) DKA, type 1 Your Health Problems Are: Fluctuating Blood Sugars Goals to Promote Your Health * To prevent worsening of your condition and complications * To maintain your health at the optimal level Directions to Meet Your Goals Take your medications as prescribed Follow your dietary instruction Follow activity as directed Keep your appointments as scheduled Take your immunizations and boosters as scheduled If your symptoms worsen call your PCP, if no PCP go to Urgent Care Center or Emergency Room Smoking is Dangerous to Your Health. Avoid second hand smoke Call the 24-hour hour crisis hotline for domestic abuse at Josy Coyle MD Apr 09, 2017 09:43
[2017-04-09] MEDS ORDERED: POTASSIUM CHLORIDE 10 MEQ CONTROLLED RELEASE TAB PO ONE (09:45)
[2017-04-09] MEDS ORDERED: INSULIN DETEMIR 100 UNITS/ML VIAL SQ SCH (09:45)
[2017-04-09] MEDS ORDERED: DEXTROSE 50% IN WATER 50 ML VIAL(D50) IV PRN (09:45)
[2017-04-09] MEDS ORDERED: GLUCAGON 1 MG/ML VIAL OTHER PRN (09:45)
--- NOTE | 2017-04-09 09:45 | HHI.DS ---
Discharge Summary Admission Date Apr 07, 2017 at 20:26 Discharge Date: Apr 09, 2017 Admitting Diagnosis DKA (1) DKA, type 1 ICD Code: E10.10 Diagnosis: Principal Procedures none Brief History - From Admission This is a pleasant 36 y/o Female who came to ER with complaint of headache, nausea vomiting, abdominal pain and urinary frequency. Patient has history diabetes Mellitus type I. Patient states that she started having epigastric abdominal pain with radiation of back since one day before coming to ER, Patient has history of pancreatitis in the past. Patient states that headache is mild aching headache. Patient denies any visual change. Patient states that she has intermittent shortness of breath. Patient denies any coughing congestion. Patient denies any vaginal discharge or bleeding. Patient checked her blood sugar at home and was registered high. was in DKA on admission, she is been seen in her bedroom in the presence of her Girlfriend authorized for her to be in the room Miss Ayala as per patient continue with Nausea, discussed with nurse Miss Mueller. she has DM I since she was 21 years of age. CBC/BMP: 04/07/17 1855 04/09/17 0635 Significant Findings Laboratory Tests Test 04/07/17 04/07/17 04/07/17 04/07/17 18:23 18:42 18:55 22:48 Urine Glucose (UA) 1000 mg/dL (NEG) Urine Ketones 80 mg/dL (NEG) Blood Gas HCO3 13 mmol/L (22-26) Blood Gas Base Excess -11.7 mmol/L (-2-2) Arterial Blood pH 7.31 (7.380-7.420) Arterial Blood Partial 27 mmHg (38-42) Pressure CO2 Mean Corpuscular Hemoglobin 31.3 % Concent (32.0-36.0) Neutrophils (%) (Auto) 91.0 % (16.0-70.0) Lymphocytes (%) (Auto) 6.7 % (9.0-44.0) Neutrophils # (Auto) 8.4 TH/MM3 (1.8-7.7) Lymphocytes # (Auto) 0.6 TH/MM3 (1.0-4.8) Sodium Level 129 MEQ/L (136-145) Chloride Level 97 MEQ/L 108 MEQ/L (98-107) (98-107) Carbon Dioxide Level 15.7 MEQ/L 20.4 MEQ/L (21.0-32.0) (21.0-32.0) Anion Gap 16 MEQ/L (5-15) Creatinine 1.50 MG/DL (0.50-1.00) Estimat Glomerular Filtration 40 ML/MIN (>89) Rate Random Glucose 613 MG/DL 229 MG/DL (74-106) (74-106) Aspartate Amino Transf 42 U/L (15-37) (AST/SGOT) Alkaline Phosphatase 119 U/L (45-117) Total Protein 8.5 GM/DL (6.4-8.2) Lipase 71 U/L (73-393) B-Hydroxybutyrate 2.44 MMOL/L (0.00-0.39) Hemoglobin A1c 8.6 % (4.3-6.0) Calcium Level 7.8 MG/DL (8.5-10.1) Test 04/08/17 04/08/17 04/08/17 04/08/17 01:31 08:19 16:41 21:04 Chloride Level 110 MEQ/L 109 MEQ/L 109 MEQ/L (98-107) (98-107) (98-107) Random Glucose 142 MG/DL 312 MG/DL 196 MG/DL (74-106) (74-106) (74-106) Calcium Level 8.0 MG/DL 7.7 MG/DL 8.0 MG/DL 8.1 MG/DL (8.5-10.1) (8.5-10.1) (8.5-10.1) (8.5-10.1) Phosphorus Level 2.0 MG/DL 2.4 MG/DL 1.3 MG/DL 1.7 MG/DL (2.5-4.9) (2.5-4.9) (2.5-4.9) (2.5-4.9) Carbon Dioxide Level 20.3 MEQ/L (21.0-32.0) B-Hydroxybutyrate 2.39 MMOL/L 0.58 MMOL/L (0.00-0.39) (0.00-0.39) Creatinine 0.49 MG/DL (0.50-1.00) Test 04/09/17 06:35 Potassium Level 3.2 MEQ/L (3.5-5.1) Chloride Level 110 MEQ/L (98-107) Blood Urea Nitrogen 6 MG/DL (7-18) Random Glucose 149 MG/DL (74-106) Calcium Level 7.9 MG/DL (8.5-10.1) Imaging Last Impressions Chest X-Ray 04/07/17 0000 Signed Impressions: Service Date/Time: Friday, April 07, 2017 20:23 - CONCLUSION: No acute disease. Spencer Brody MD PE at Discharge GENERAL: This is a well-nourished, well-developed patient, in no apparent distress. CARDIOVASCULAR: Regular rate and regular rhythm without murmurs, gallops, or rubs. RESPIRATORY: Clear to auscultation. Breath sounds equal bilaterally. No wheezes , rales, or rhonchi. GASTROINTESTINAL: Abdomen soft, non-tender, nondistended. Normal, active bowel sounds MUSCULOSKELETAL: Extremities without clubbing, cyanosis, or edema. NEURO: Alert & Oriented x4 to person, place, time, situation. Moves all ext x4 Hospital Course patient was admitted with DKA which has resolved. 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 Pt Condition on Discharge: Good Discharge Disposition: Discharge Home Discharge Time: <= 30 minutes Discharge Instructions DIET: Follow Instructions for: Diabetic Diet Activities you can perform: Regular-No Restrictions Follow up Referrals: PCP Follow-up New Medications: Insulin Aspart Inj (Novolog Inj) 1,000 Unit/10 Ml Vial 0 SQ DIRECTED accu-check AC/HS with Sliding Scale as directed; 150-200 two units 201-250 four units 251-300 six units 301-350 eight units 351-400 ten units. inform MD if < 70 or > 400. Blood Sugar Management Days 30 Ref 0 ML Insulin Detemir Inj (Levemir Inj) 1,000 unit/ 10 ML Vial 10 UNITS SQ HS Do not mix with any other Insulin. Blood Sugar Management Days 30 Ref 0 VIAL Discontinued Medications: Insulin Glulisine Inj (Apidra Inj) 1,000 Unit/10 Ml Vial 10 UNITS SQ ACHS SLIDING SCALE Blood Sugar Management Ref 0 VIAL Insulin Human NPH Inj (Novolin N Inj) 1,000 Unit/10 Ml Vial 15 UNIT SQ DIRECTED Sliding Scale As Directed. Blood Sugar Management Ref 0 ML Josy Coyle MD Apr 09, 2017 09:44
[2017-04-09] MEDS ORDERED: INSULIN ASPART SUPPLEMENTAL SCALE SQ SCH (11:00)
[2017-04-09 12:00] VITALS: BP 149/92; PULSE 84; RESP 20; TEMP 97.7; O2SAT 98
[2017-04-09] MEDS ORDERED: POTASSIUM CHLORIDE 20 MEQ CONTROLLED RELEASE TAB PO ONE (14:00)
[2017-04-09 15:42] VITALS: BP 159/93; PULSE 87; RESP 20; TEMP 98.2; O2SAT 100
== END 2017-04-09 16:20 | disposition home or self-care (01) | DRG 639 ==
LOC: NEPE 17:49 → NEDA 20:26 → N06B 04-08 02:40
PROVIDERS: ADMIT Internal Medicine; ATTEND Internal Medicine
DX: E10.10 Type 1 diabetes mellitus with ketoacidosis without coma (principal); E83.39 Other disorders of phosphorus metabolism; E87.6 Hypokalemia; Z79.4 Long term (current) use of insulin
CPT/HCPCS: 36600; 71010; 80048; 80053; 81001; 82010; 82805; 82948; 83036; 83690; 83735; 84100; 84703; 85025; C9113; J0780; J1815; J2405; J7030